=== PATIENT | female | born 1980 | race African-American/Black ===

== ENCOUNTER 2023-05-14 17:33 | Inpatient (IN) | payer OTHER ==
[2023-05-14 17:41] VITALS: BMI 26.7
[2023-05-14 18:59] LABS: EOS % 2.7 % (0-4.5); LYMPH % 26.5 % (8-40); MCHC 23.5 g/dl (32.0-36.0); MEAN CELL VOLUME 47.5 fl (80-96); MONO % 11.6 % (3.8-10.2); NEUT % 57.2 % (42.8-82.8); PLATELET COUNT 379 10^3/uL (134-434); RBC 3.59 M/mm3 (3.60-5.2); RDW 27.3 % (11.6-15.6); WHITE BLOOD COUNT 7.6 K/mm3 (4.0-10.0)
[2023-05-14 19:06] LABS: INR 1.12 (0.83-1.09)
[2023-05-14 19:09] LABS: ACTIVATED PTT 26.9 SECONDS (25.2-36.5); MCH 11.2 pg (25.7-33.7)
[2023-05-14 19:20] LABS: POTASSIUM 3.8 mmol/L (3.5-5.1)
[2023-05-14 19:22] LABS: ALBUMIN 3.6 g/dl (3.4-5.0)
[2023-05-14 19:23] LABS: CALCIUM 8.8 mg/dL (8.5-10.1)
[2023-05-14 19:25] LABS: CREATININE 0.4 mg/dL (0.55-1.3)
[2023-05-14 19:27] LABS: BILIRUBIN,TOTAL 0.3 mg/dL (0.2-1); TOT PROT 7.5 g/dl (6.4-8.2)
[2023-05-14 21:06] LABS: ANISOCYTOSIS 3+; MACROCYTOSIS 1+; OVALOCYTE 1+; TARGET CELLS 1+; TEAR DROP CELLS 1+
[2023-05-14 22:11] LABS: RETICULOCYTES 3.62 % (0.5-1.5)
[2023-05-14] MEDS: NICOTINE 21 MG/24 HOURS TOPICAL PATCH TD SCH (22:16)
[2023-05-14] MEDS ORDERED: NICOTINE 21 MG/24 HOURS TOPICAL PATCH ONE (22:19)
[2023-05-14 22:59] LABS: EPI CELLS >36 /uL (0-25.1); HYALINE CASTS 0 /uL (0-3.1); PH,URINE 6.5 (5.0-8.0); URINE APPEARANCE CLEAR; URINE BACTERIA 232 /uL (0-1359); URINE BILIRUBIN NEGATIVE (NEGATIVE); URINE COLOR YELLOW; URINE GLUCOSE (UA) NEGATIVE (NEGATIVE); URINE KETONE NEGATIVE (NEGATIVE); URINE LEUK ESTERASE TRACE (NEGATIVE); URINE NITRITE NEGATIVE (NEGATIVE); URINE PROTEIN NEGATIVE (NEGATIVE); URINE RBC 6 /uL (0-23.9); URINE WBC 48 /uL (0-25.8)
[2023-05-15] MEDS: NICOTINE 21 MG/24 HOURS TOPICAL PATCH TD SCH (10:21)
[2023-05-15] MEDS ORDERED: guaiFENesin/D-METHORPHAN HB 10 ML UNIT-DOSE CUPS PO PRN (14:21)
[2023-05-15 15:55] LABS: HEMATOCRIT 24.2 % (32.4-45.2); MCHC 26.7 g/dl (32.0-36.0); MEAN CELL VOLUME 56.7 fl (80-96); MEAN PLT VOLUME 8.1 fl (7.5-11.1); PLATELET COUNT 354 10^3/uL (134-434); RBC 4.26 M/mm3 (3.60-5.2); RDW 38.5 % (11.6-15.6); WHITE BLOOD COUNT 6.6 K/mm3 (4.0-10.0)
[2023-05-15 16:07] LABS: MCH 15.2 pg (25.7-33.7)
[2023-05-15 16:10] LABS: HEMOGLOBIN 6.5 GM/dL (10.7-15.3)
[2023-05-15 16:15] LABS: POTASSIUM 3.9 mmol/L (3.5-5.1)
[2023-05-15 16:17] LABS: CALCIUM 8.4 mg/dL (8.5-10.1)
[2023-05-15 16:18] LABS: ALBUMIN 3.1 g/dl (3.4-5.0); BLOOD UREA NITROGEN 4.6 mg/dL (7-18)
[2023-05-15 16:21] LABS: CREATININE 0.4 mg/dL (0.55-1.3)
[2023-05-15 16:23] LABS: BILIRUBIN,TOTAL 0.6 mg/dL (0.2-1); TOT PROT 6.6 g/dl (6.4-8.2)
[2023-05-16] MEDS: NICOTINE 21 MG/24 HOURS TOPICAL PATCH TD SCH (09:31)
[2023-05-16 10:16] LABS: HEMATOCRIT 24.2 % (32.4-45.2); MCHC 27.7 g/dl (32.0-36.0); MEAN CELL VOLUME 57.1 fl (80-96); MEAN PLT VOLUME 8.1 fl (7.5-11.1); PLATELET COUNT 319 10^3/uL (134-434); RBC 4.24 M/mm3 (3.60-5.2); RDW 38.3 % (11.6-15.6); WHITE BLOOD COUNT 6.8 K/mm3 (4.0-10.0)
[2023-05-16 10:28] LABS: CALCIUM 8.7 mg/dL (8.5-10.1)
[2023-05-16 10:29] LABS: ALBUMIN 3.1 g/dl (3.4-5.0); BLOOD UREA NITROGEN 3.4 mg/dL (7-18); MAGNESIUM 2.1 mg/dL (1.8-2.4)
[2023-05-16 10:30] LABS: MCH 15.8 pg (25.7-33.7)
[2023-05-16 10:32] LABS: CREATININE 0.4 mg/dL (0.55-1.3); PHOSPHOROUS 2.9 mg/dL (2.5-4.9)
[2023-05-16 10:33] LABS: BILIRUBIN,TOTAL 0.6 mg/dL (0.2-1); TOT PROT 6.6 g/dl (6.4-8.2)
[2023-05-16 10:35] LABS: HEMOGLOBIN 6.7 GM/dL (10.7-15.3)
[2023-05-16 13:02] LABS: ANISOCYTOSIS 2+; MACROCYTOSIS 0; OVALOCYTE 2+; TEAR DROP CELLS 2+
[2023-05-17 09:34] VITALS: BP 122/79; PULSE 79; RESP 18; TEMP 98
[2023-05-17] MEDS: NICOTINE 21 MG/24 HOURS TOPICAL PATCH TD SCH (10:18)
[2023-05-17 13:02] LABS: HEMATOCRIT 31.7 % (32.4-45.2); HEMOGLOBIN 8.7 GM/dL (10.7-15.3); MCHC 27.6 g/dl (32.0-36.0); MEAN CELL VOLUME 60.2 fl (80-96); MEAN PLT VOLUME 8.1 fl (7.5-11.1); PLATELET COUNT 307 10^3/uL (134-434); RBC 5.27 M/mm3 (3.60-5.2); RDW 40.5 % (11.6-15.6); WHITE BLOOD COUNT 9.7 K/mm3 (4.0-10.0)
[2023-05-17 13:03] LABS: MCH 16.6 pg (25.7-33.7)
[2023-05-17 13:24] LABS: ANISOCYTOSIS 2+; MACROCYTOSIS 0; OVALOCYTE 1+
== END 2023-05-17 16:00 | disposition home or self-care (01) | DRG 532 ==
LOC: JER 17:33 → JERBED 19:44 → J5S 05-15 03:21
PROVIDERS: ADMIT Internal Medicine
PROC: 30233N1 Transfusion of Nonautologous Red Blood Cells into Peripheral Vein, Percutaneous Approach (ICD-10-PCS; principal; 2023-05-14)
DX: N92.0 Excessive and frequent menstruation with regular cycle (principal); D62 Acute posthemorrhagic anemia; D21.9 Benign neoplasm of connective and other soft tissue, unspecified; D50.9 Iron deficiency anemia, unspecified; F17.210 Nicotine dependence, cigarettes, uncomplicated
CPT/HCPCS: 36415; 36430; 71046-TC-FY; 76830-TC; 80053; 80061; 81003; 82272; 82728; 83540; 83550; 83735; 84100; 84439; 84443; 84703; 85025; 85027; 85045; 85610; 85730; 86900; 93005; 93010; 99285-25; P9058

== ENCOUNTER 2023-07-22 04:09 | Day surgery (SDC) | payer OTHER ==
[2023-07-17 13:03] VITALS: BMI 29.6
[2023-07-22] MEDS ORDERED: MIDAZOLAM HCL 2 MG/2 ML SINGLE DOSE VIAL ONE (13:15)
[2023-07-22] MEDS ORDERED: PROPOFOL 20 ML ONE (13:15)
[2023-07-22] MEDS ORDERED: LIDOCAINE HCL/PF 2% SDV 5ML VIAL ONE (13:15)
[2023-07-22] MEDS ORDERED: DEXAMETHASONE SOD PHOSPHATE 4 MG/1 ML VIAL ONE (13:57)
[2023-07-22] MEDS ORDERED: ceFAZolin SODIUM 1 GM VIAL ONE (13:57)
[2023-07-22] MEDS: ceFAZolin SODIUM 1 GM VIAL IVPB ONE (14:00)
[2023-07-22] MEDS ORDERED: KETOROLAC TROMETHAMINE 30 MG/1 ML VIAL ONE (14:03)
[2023-07-22] MEDS ORDERED: ONDANSETRON 4 MG/2 ML VIAL ONE (14:03)
[2023-07-22] MEDS ORDERED: ONDANSETRON 4 MG/2 ML VIAL IVPUSH PRN (14:46)
[2023-07-22] MEDS ORDERED: oxyCODONE HCL 5 MG TABLET PO PRN ×2 (14:46)
[2023-07-22] MEDS ORDERED: PROMETHAZINE HCL 25 MG/1 ML VIAL IVPB PRN (14:46)
[2023-07-22] MEDS ORDERED: LACTATED RINGERS SOLUTION 1,000 ML IV SCH (15:00)
[2023-07-22] MEDS: ACETAMINOPHEN 1000 MG/100 ML BAG IVPB ONE (15:00)
[2023-07-22 16:27] VITALS: RESP 18
[2023-07-22 17:20] VITALS: BP 136/78; PULSE 63; TEMP 97.8
== END 2023-07-22 16:55 | disposition home or self-care (01) ==
LOC: JASU-SURG 04:09
PROVIDERS: ATTEND Obstetrics & Gynecology
PROC: 0UDB8ZX Extraction of Endometrium, Via Natural or Artificial Opening Endoscopic, Diagnostic (ICD-10-PCS; principal; 2023-07-22 13:30)
DX: N92.0 Excessive and frequent menstruation with regular cycle (principal)
CPT/HCPCS: 81025; 88305-TC; 94760; J0131